=== PATIENT | male | born 1990 ===

== ENCOUNTER 2018-02-09 19:48 | Emergency (ER) | payer OTHER ==
[2018-02-09 20:10] VITALS: BP 125/79; PULSE 64; RESP 20; TEMP 98.8; O2SAT 100
[2018-02-09] MEDS ORDERED: Tetanus/Diphtheria Toxoids 0.5 ml Syringe IM ONE (20:42)
--- NOTE | 2018-02-09 21:26 | C.PDOC ---
History Of Present Illness 28 year old male presents to the ER after sustaining a laceration to the left hand [employer]. 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 Patient cleansed the wound with antiseptic spray and dressed it [employer]. Denies foreign in the wound, weakness, or numbness. Time Seen by Provider: 02/09/18 20:22 Chief Complaint (Nursing): Abnormal Skin Integrity History Per: Patient History/Exam Limitations: no limitations Onset/Duration Of Symptoms: Hrs Current Symptoms Are (Timing): Still Present Location Of Injury: Left: Hand Quality Of Symptoms: Other (Laceration) Recent travel outside of the [place]: No Past Medical History Reviewed: Historical Data, Nursing Documentation, Vital Signs Vital Signs: Last Vital Signs Temp 98.8 F 02/09/18 20:07 Pulse 64 02/09/18 20:07 Resp 20 02/09/18 20:07 BP 125/79 02/09/18 20:07 Pulse Ox 100 02/09/18 21:28 Family History: States: Unknown Family Hx - Social History Hx Alcohol Use: Yes Hx Substance Use: No - Immunization History Hx Tetanus Toxoid Vaccination: No Hx Influenza Vaccination: No Hx Pneumococcal Vaccination: No Review Of Systems Skin: Positive for: Other (Laceration) Neurological: Negative for: Weakness, Numbness Physical Exam - Physical Exam Appears: Non-toxic Skin: Warm, Dry Head: Atraumatic, Normacephalic Eye(s): bilateral: Normal Inspection Extremity: Normal ROM (x4), Capillary Refill (<2 seconds), Other (0.5cm superficial laceration to palmar aspecy of left hand at base of left MCP) Pulses: Left Radial: Normal, Right Radial: Normal Neurological/Psych: Oriented x3, Normal Speech, Normal Motor, Normal Sensation Gait: Steady ED Course And Treatment O2 Sat by Pulse Oximetry: 100 (Room air) Pulse Ox Interpretation: Normal Progress Note: Tetanus vaccination administered. Patient tolerated laceration repair without any difficulty. Patient is resting comfortably in the ER in no acute distress, vitals are stable, patient given proper wound care instructions and advised to follow up with PMD. Laceration - Laceration Repair Left hand Wound Length (In cm): 0.5 Description Of Wound: Linear Wound Cleansed With: Betadine, Sterile Saline Wound Examination: Irrigated With Saline, No FB With Wound Exploration, No Tendon Injury With Wound Exploration Wound Closure: Steri Strips (x4), Skin Glue (Dermabond) Disposition Counseled Patient/Family Regarding: Diagnosis, Need For Followup - Disposition Referrals: Tosin Wright MD [Staff Provider] - Disposition: HOME/ ROUTINE Disposition Time: 21:23 Condition: STABLE Additional Instructions: Keep wound dry for 2 days Follow up with PMD or Hand specialist if pain , numbness or tingling develop and persist Return to ER if any concerns Instructions: Laceration Repair With Glue (DC) Forms: Wimdu (Urdu), Work Excuse - Clinical Impression Clinical Impression: Hand laceration - PA / JIVE DEVELOPER / Resident Statement MD/DO has reviewed & agrees with the documentation as recorded. - Scribe Statement The provider has reviewed the documentation as recorded by the Scribelana Riggs All medical record entries made by the Scribe were at my direction and personally dictated by me. I have reviewed the chart and agree that the record accurately reflects my personal performance of the history, physical exam, medical decision making, and the department course for this patient. I have also personally directed, reviewed, and agree with the discharge instructions and disposition.
== END 2018-02-09 21:42 | disposition home or self-care (01) ==
LOC: C.ER 19:48
DX: S61.412A Laceration without foreign body of left hand, initial encounter (principal); W25.XXXA Contact with sharp glass, initial encounter; Y92.89 Other specified places as the place of occurrence of the external cause; Y99.0 Civilian activity done for income or pay